=== PATIENT | female | born 1955 | race Caucasian/White ===

== ENCOUNTER 2017-03-17 06:29 | Day surgery (SDC) | payer OTHER ==
[2017-03-16 12:13] VITALS: BMI 22.3
[~2017-03-17 06:29] MED LIST: ACETAMINOPHEN 325 MG TABLET (FP) PO PRN; TRIAMCINOLONE ACET 40MG/1ML VIAL IJ ONE; VANCOMYCIN 500 MG VIAL (RESTRICTED TO ID ONLY) IVPB ONE
[2017-03-17] MEDS ORDERED: CIPROFLOXACIN 0.3% EYE DROPS 5 ML BOTTLE ONE (07:05)
[2017-03-17] MEDS: CIPROFLOXACIN HCL 0.3% OPHTH 2.5ML BOTTLE OP SCH ×2 (07:15→07:25)
[2017-03-17] MEDS ORDERED: TRIAMCINOLONE ACET 40MG/1ML VIAL ONE (07:35)
[2017-03-17] MEDS ORDERED: LIDOCAINE 1%/EPI 1:100000 (20 ML MULTI DOSE VIAL) ONE (07:35)
[2017-03-17] MEDS ORDERED: LIDOCAINE HCL 2% JELLY (5 ML/TUBE) ONE (07:44)
[2017-03-17] MEDS ORDERED: VANCOMYCIN 500 MG VIAL (RESTRICTED TO ID ONLY) ONE (07:44)
[2017-03-17] MEDS ORDERED: POVIDONE-IODINE 5% OPHTHALMIC PREP 30 ML SOLUTION ONE (07:45)
[2017-03-17] MEDS ORDERED: BSS (NA/CA/MG/K) BALANCED SALT SOLUTION OPHTH SOLN 15 ML BOTTLE ONE (07:45)
[2017-03-17] MEDS ORDERED: LIDOCAINE HCL 2% JELLY (5 ML/TUBE) TP ONE (08:00)
[2017-03-17] MEDS ORDERED: PROPOFOL 20 ML ONE ×2 (08:09)
[2017-03-17] MEDS ORDERED: MIDAZOLAM HCL 2 MG/2 ML SINGLE DOSE VIAL ONE (08:09)
[2017-03-17] MEDS ORDERED: POVIDONE-IODINE 5% OPHTHALMIC PREP 30 ML SOLUTION OS ONE (08:12)
[2017-03-17] MEDS ORDERED: BSS (NA/CA/MG/K) BALANCED SALT SOLUTION OPHTH SOLN 15 ML BOTTLE IO ONE (08:18)
[2017-03-17] MEDS ORDERED: LIDOCAINE 1%/EPI 1:100000 (50 ML MULTI DOSE VIAL) INF ONE ×2 (08:18)
[2017-03-17] MEDS ORDERED: WATER FOR INJ,STERILE 10 ML ONE (08:19)
[2017-03-17] MEDS ORDERED: TRIAMCINOLONE ACET 40MG/1ML VIAL IJ ONE (08:49)
[2017-03-17] MEDS ORDERED: VANCOMYCIN 500 MG VIAL (RESTRICTED TO ID ONLY) IVPB ONE (08:49)
--- NOTE | 2017-03-17 09:38 | OP ---
DATE OF OPERATION: DATE OF DICTATION: 03/17/2017 PREOPERATIVE DIAGNOSIS: Recurrent pterygium, left eye. POSTOPERATIVE DIAGNOSIS: Recurrent pterygium, left eye. PROCEDURE: Excision of recurrent pterygium with conjunctival autograft, left eye. ANESTHESIA: Topical, MAC. COMPLICATIONS: None. PROCEDURE: Patient was brought to the operating room and correctly identified along with the operative site. She was then prepped and draped in the usual sterile fashion, including 5% Betadine solution in the conjunctival sac and eyelid drape. An eyelid speculum was then placed into the left eye. The borders of the pterygium were marked with a marking pen and 2 relaxing incisions were made superior and inferior to the pterygium. Dissection was taken place to bare sclera beneath the pterygium. The pterygium was then freed from the corneal surface using Calibri forceps as well as the Giovanny scissors without any significant cutting. The conjunctiva was noted to immediately retract after the pterygium was freed from the corneal surface. The corneal surface was polished with a 57 blade and some dissection to bare sclera as well as subconjunctivally was performed using Giovanny scissors as well as cotton-tipped applicators. Care was made not to damage the medial rectus tendon by elevating the conjunctiva during this dissection. There was no significant tissue to be removed as a large conjunctival defect was noted which measured 5 mm horizontally by 9 mm vertically, but a small specimen was sent for histopathologic evaluation. Attention was then placed to the superotemporal conjunctiva and an appropriate size conjunctival autograft was created. This autograft was then brought over to the conjunctival defect and secured in place with five 10-0 nylon sutures. No gap was noted. At the end of the procedure, the graft was noted to be well secured. Subconjunctival Kenalog given nasally and topical vancomycin given. The eye patched and shielded and the patient discharged from the operating room in a stable condition. CHARLA SOLIMAN M.D. [id number]
[2017-03-17 10:33] VITALS: BP 120/75; PULSE 66; TEMP 97.8
--- NOTE | 2017-03-18 12:22 | PATH ---
Surgical Pathology Report Patient Name: MATIAS NGUYEN [facility]. Rec. #: [id number] /Age/Gender: 1955 (Age: 61) / F Account: [id number] Location: [facility] SURGICAL Taken: 03/17/2017 Received: 03/17/2017 Reported: 03/18/2017 Physicians: Edmond Esparza M.D. Specimen(s) Received PTERYGIUM LEFT EYE Clinical History Recurring pterygium left eye Final Diagnosis EYE, LEFT, PTERYGIUM, EXCISION: BENIGN FIBROUS TISSUE. Electronically Signed Dot Hall M.D. Gross Description Received in formalin, labeled "pterygium left eye" is a pineda, irregular portion of soft tissue measuring 0.1 cm. in greatest dimension. The specimen is submitted in toto in one cassette. 03/17/201703/17/2017
== END 2017-03-17 10:15 | disposition home or self-care (01) ==
LOC: JASU-SURG 06:29
PROVIDERS: ATTEND Ophthalmology
PROC: 08U107Z Supplement of Left Eye with Autologous Tissue Substitute, Open Approach (ICD-10-PCS; principal; 2017-03-17 08:00)
DX: H11.062 Recurrent pterygium of left eye (principal)
CPT/HCPCS: 88304-TC